=== PATIENT | female | born 1995 | race African-American/Black ===

== ENCOUNTER 2017-09-18 06:58 | Emergency (ER) | payer OTHER ==
[~2017-09-18] VITALS: Ht 167.6 cm; Wt 52.2 kg
[~2017-09-18 06:58] MED LIST: NAPROSYN500 MG PO; TRAMADOL 50 MG50 MG PO; TYLENOL325 MG PO; ZOFRAN4 MG PO
[2017-09-18 07:02] VITALS: BP 106/76
[2017-09-18] MEDS ORDERED: AMOXICILLIN875 MG PO (07:11)
== END 2017-09-18 07:19 | disposition home or self-care (01) ==
LOC: ER 06:58
DX: H66.91 Otitis media, unspecified, right ear (principal)